=== PATIENT | male | born 1950 | race Caucasian/White ===

== ENCOUNTER 2023-11-25 06:49 | Inpatient (IN) | payer MEDICARE, OTHER ==
[~2023-11-25] VITALS: Ht 162.6 cm; Wt 81.6 kg
[2023-11-25 07:30] VITALS: BP 148/87; TEMP 97.9; O2SAT 95
[2023-11-25] MEDS ORDERED: dexaMETHasone SOD PHOSPHATE 2 ML ONE (08:04)
[2023-11-25] MEDS ORDERED: LIDOCAINE 2%-EPI 1:100,000 30 ML VIAL ONE (08:04)
[2023-11-25] MEDS ORDERED: VANCOMYCIN 1 GM VIAL ONE (08:04)
[2023-11-25] MEDS ORDERED: SEVOFLURANE 250 ML BOTTLE IH ONE (09:02)
[2023-11-25] MEDS ORDERED: FENTANYL PF 100MCG/2ML AMPUL ONE (11:54)
[2023-11-25] MEDS ORDERED: ACETAMINOPHEN 325 MG TABLET PO PRN (13:00)
[2023-11-25] MEDS ORDERED: ONDANSETRON HCL/PF 4 MG/2 ML VIAL IVP PRN (13:00)
[2023-11-25] MEDS: IV NS 0.9% 1,000 ML IV PRN (13:05)
[2023-11-25] MEDS ORDERED: PANT40TA2 PO (13:14)
[2023-11-25] MEDS ORDERED: ESCI20TA PO (13:14)
[2023-11-25] MEDS ORDERED: LISI10TA30 PO (13:14)
[2023-11-25] MEDS ORDERED: CHOL500052 PO (13:14)
[2023-11-25] MEDS ORDERED: MELA5TAB PO (13:14)
[2023-11-25] MEDS ORDERED: FINA5TAB4 PO (13:14)
[2023-11-25] MEDS ORDERED: DONE5TAB34 PO (13:14)
[2023-11-25] MEDS ORDERED: ALLO100T PO (13:14)
[2023-11-25] MEDS ORDERED: TAMS-12 PO (13:14)
[2023-11-25] MEDS ORDERED: AMLO5TAB4 PO (13:14)
[2023-11-25 16:00] VITALS: BP 139/90; TEMP 98.6; O2SAT 95
[2023-11-25] MEDS: HYDROMORPHONE 1 MG/1 ML DISP.SYRIN IV PRN (17:08)
[2023-11-25] MEDS: AMLODIPINE BESYLATE 5 MG TABLET PO SCH (17:08)
[2023-11-25] MEDS: FINASTERIDE (5 MG) 5 MG TABLET PO SCH (17:08)
[2023-11-25 20:00] VITALS: BP 148/59; TEMP 97.3; O2SAT 97
[2023-11-25] MEDS: VANCOMYCIN 1 GM in IV D5W 250ml IV SCH (21:13)
[2023-11-25] MEDS ORDERED: Medication Not On Formulary EA (Melatonin 10 MG) PO SCH (22:00)
[2023-11-26 08:29] VITALS: BP 144/79; TEMP 99; O2SAT 95
[2023-11-26 09:38] VITALS: BP 144/79
[2023-11-26] MEDS: LISINOPRIL (10MG) 10 MG TABLET PO SCH (09:38)
[2023-11-26] MEDS: ALLOPURINOL 100 MG TABLET PO SCH (09:38)
[2023-11-26] MEDS: TAMSULOSIN 0.4 MG CAP.SR.24H PO SCH (09:39)
[2023-11-26] MEDS: ESCITALOPRAM OXALATE (10 MG) 10 MG TABLET PO SCH (09:39)
[2023-11-26] MEDS: DONEPEZIL 5 MG TABLET PO SCH (09:39)
[2023-11-26] MEDS: PANTOPRAZOLE 40 MG TABLET.DR PO SCH (09:39)
[2023-11-26] MEDS ORDERED: TRAM50TA2 PO (11:14)
[2023-11-26] MEDS ORDERED: ACET325T53 PO (11:14)
[2023-11-26] MEDS ORDERED: AMOX-430 PO (11:14)
[2023-11-29] MEDS ORDERED: ERGOCALCIFEROL (VITAMIN D 2) 50,000 UNIT CAPSULE PO SCH (09:00)
== END 2023-11-26 12:00 | disposition home or self-care (01) | DRG 516 ==
LOC: DS 06:49 → MED 06:50
PROVIDERS: ADMIT Nurse Practitioner Acute Care; ATTEND Nurse Practitioner Acute Care
PROC: 0NSV04Z Reposition Left Mandible with Internal Fixation Device, Open Approach (ICD-10-PCS; principal; 2023-11-25)
PROC: 0NST04Z Reposition Right Mandible with Internal Fixation Device, Open Approach (ICD-10-PCS; 2023-11-25)
PROC: 0NUV07Z Supplement Left Mandible with Autologous Tissue Substitute, Open Approach (ICD-10-PCS; 2023-11-25)
PROC: 0NUR07Z Supplement Maxilla with Autologous Tissue Substitute, Open Approach (ICD-10-PCS; 2023-11-25)
PROC: 0NUT07Z Supplement Right Mandible with Autologous Tissue Substitute, Open Approach (ICD-10-PCS; 2023-11-25)
PROC: 0NSR04Z Reposition Maxilla with Internal Fixation Device, Open Approach (ICD-10-PCS; 2023-11-25)
PROC: 0NBV0ZX Excision of Left Mandible, Open Approach, Diagnostic (ICD-10-PCS; 2023-11-25)
PROC: 0NBR0ZX Excision of Maxilla, Open Approach, Diagnostic (ICD-10-PCS; 2023-11-25)
PROC: 0NBT0ZX Excision of Right Mandible, Open Approach, Diagnostic (ICD-10-PCS; 2023-11-25)
DX: M84.48XK Pathological fracture, other site, subsequent encounter for fracture with nonunion (principal); T81.83XA Persistent postprocedural fistula, initial encounter; M27.2 Inflammatory conditions of jaws; Z68.30 Body mass index [BMI] 30.0-30.9, adult; E66.9 Obesity, unspecified; I10 Essential (primary) hypertension; K21.9 Gastro-esophageal reflux disease without esophagitis; M19.90 Unspecified osteoarthritis, unspecified site; N40.0 Benign prostatic hyperplasia without lower urinary tract symptoms; Z71.3 Dietary counseling and surveillance; M85.60 Other cyst of bone, unspecified site; D16.5 Benign neoplasm of lower jaw bone; Y72.8 Miscellaneous otorhinolaryngological devices associated with adverse incidents, not elsewhere classified
CPT/HCPCS: C1713; G0378; J0690; J1100; J1170; J2704; J3010; J3370; J3490; J7060

== ENCOUNTER 2024-03-17 08:20 | Inpatient (IN) | payer MEDICARE, OTHER ==
[~2024-03-17] VITALS: Ht 167.6 cm; Wt 89.8 kg
[2024-03-17] VITALS (7 sets, daily range): BP systolic 117–128; BP diastolic 76–91; TEMP 97.9–98.2; O2SAT 94–97
[~2024-03-17 08:20] MED LIST: ACET325T53 PO; ALLO100T PO; AMLO5TAB4 PO; AMOX-430 PO; CHOL500052 PO; DONE5TAB34 PO; ESCI20TA PO; FINA5TAB4 PO; LISI10TA30 PO; MELA5TAB PO; PANT40TA2 PO; TAMS-12 PO; TRAM50TA2 PO
[2024-03-17] MEDS ORDERED: MIDAZOLAM HCL 2 MG/2ML VIAL ONE (10:04)
[2024-03-17] MEDS ORDERED: LIDOCAINE 2% JEL UROJET 10 ML MM ONE (10:05)
[2024-03-17] MEDS ORDERED: ROCURONIUM BROMIDE 50 MG/5 ML ONE (10:05)
[2024-03-17] MEDS ORDERED: FAMOTIDINE/PF INJ 20 MG/2 ML VIAL IV ONE (10:05)
[2024-03-17] MEDS ORDERED: FENTANYL PF 100MCG/2ML AMPUL ONE (10:05)
[2024-03-17] MEDS ORDERED: OXYMETAZOLINE HCL NASAL SPRAY 30 ML BOTTLE NS ONE (10:06)
[2024-03-17] MEDS ORDERED: dexaMETHasone SOD PHOSPHATE 1 ML ONE (10:07)
[2024-03-17] MEDS ORDERED: LIDOCAINE 2%-EPI 1:100,000 30 ML VIAL ONE (10:07)
[2024-03-17] MEDS ORDERED: VANCOMYCIN 1 GM VIAL ONE (10:07)
[2024-03-17] MEDS ORDERED: ACETAMINOPHEN 325 MG TABLET PO PRN (13:00)
[2024-03-17] MEDS ORDERED: ONDANSETRON HCL/PF 4 MG/2 ML VIAL IV PRN (13:00)
[2024-03-17] MEDS: IV NS 0.9% 1,000 ML IV PRN (14:18)
[2024-03-17] MEDS: HYDROMORPHONE 1 MG/1 ML DISP.SYRIN IV PRN (14:19)
[2024-03-17] MEDS ORDERED: MENTHOL/CETYLPYRD (CEPACOL) 1 LOZ LOZENGE PO PRN (14:30)
[2024-03-17] MEDS ORDERED: MAGNESIUM HYDROXIDE 30 ML UDC PO PRN (14:30)
[2024-03-17] MEDS: FINASTERIDE (5 MG) 5 MG TABLET PO SCH (18:28)
[2024-03-18 06:56] LABS: BASOPHILS % (AUTO) 0.1 % (0.0-2.0); HEMATOCRIT 43 % (39-51); HEMOGLOBIN 15.1 g/dL (13.5-17.5); LYMPHOCYTES # (AUTO) 0.8 K/uL (0.8-4.8); LYMPHOCYTES % (AUTO) 8.4 % (20.0-44.0); MEAN CORPUSCULAR HEMOGLOBIN 34 PG (26.0-33.0); MEAN CORPUSCULAR HGB CONC 35 g/dl (31.0-36.0); MEAN CORPUSCULAR VOLUME 98 fL (80-96); MONOCYTES # (AUTO) 0.3 K/uL (0.1-1.30); MONOCYTES % (AUTO) 3.3 % (2.0-12.0); NEUTROPHILS # (AUTO) 8.2 K/uL (1.8-8.9); NEUTROPHILS % (AUTO) 88.2 % (43.0-81.0); PLATELET COUNT (AUTO) 151 K/uL (150-450); RED BLOOD CELL COUNT(AUTO) 4.45 MIL/uL (4.5-6.0); RED CELL DISTRIBUTION WIDTH 13.1 % (11.5-15.0); WHITE BLOOD COUNT (AUTO) 9.3 K/uL (4.3-11.0)
[2024-03-18 07:16] LABS: CALCIUM, SERUM 8.8 mg/dL (8.5-10.1); CREATININE 1.1 mg/dL (0.6-1.3); MAGNESIUM 2.1 mg/dL (1.8-2.4); PHOSPHORUS 2.6 mg/dL (2.5-4.9); POTASSIUM 4.2 mmol/L (3.5-5.1)
[2024-03-18 08:00] VITALS: BP 120/72; TEMP 98.1; O2SAT 95
[2024-03-18] MEDS: ALLOPURINOL 100 MG TABLET PO SCH (08:32)
[2024-03-18 08:33] VITALS: BP 120/72
[2024-03-18] MEDS: TAMSULOSIN 0.4 MG CAP.SR.24H PO SCH (08:33)
[2024-03-18] MEDS: DONEPEZIL 5 MG TABLET PO SCH (08:33)
[2024-03-18] MEDS: LISINOPRIL (10MG) 10 MG TABLET PO SCH (08:33)
[2024-03-18] MEDS: ESCITALOPRAM OXALATE (10 MG) 10 MG TABLET PO SCH (08:33)
[2024-03-18] MEDS: PANTOPRAZOLE 40 MG TABLET.DR PO SCH (08:33)
== END 2024-03-18 11:45 | disposition home or self-care (01) | DRG 496 ==
LOC: DS 08:20 → MED 14:00
PROVIDERS: ADMIT Nurse Practitioner Family; ATTEND Nurse Practitioner Family
PROC: 0NPW04Z Removal of Internal Fixation Device from Facial Bone, Open Approach (ICD-10-PCS; principal; 2024-03-17)
PROC: 0NQT0ZZ Repair Right Mandible, Open Approach (ICD-10-PCS; 2024-03-17)
PROC: 0NBR0ZX Excision of Maxilla, Open Approach, Diagnostic (ICD-10-PCS; 2024-03-17)
PROC: 0NBT0ZZ Excision of Right Mandible, Open Approach (ICD-10-PCS; 2024-03-17)
DX: T84.69XA Infection and inflammatory reaction due to internal fixation device of other site, initial encounter (principal); S02.69XK Fracture of mandible of other specified site, subsequent encounter for fracture with nonunion; T81.83XA Persistent postprocedural fistula, initial encounter; I10 Essential (primary) hypertension; K21.9 Gastro-esophageal reflux disease without esophagitis; Z87.442 Personal history of urinary calculi; N40.0 Benign prostatic hyperplasia without lower urinary tract symptoms; M19.90 Unspecified osteoarthritis, unspecified site; M27.2 Inflammatory conditions of jaws; Y83.8 Other surgical procedures as the cause of abnormal reaction of the patient, or of later complication, without mention of misadventure at the time of the procedure; Y92.009 Unspecified place in unspecified non-institutional (private) residence as the place of occurrence of the external cause; X58.XXXD Exposure to other specified factors, subsequent encounter
CPT/HCPCS: 36415; 80048-TC; 83735-TC; 84100-TC; 85025-TC; 88300-TC; 88305-TC; 88311-TC; A4223; G0378; J1100; J1170; J2250; J2405; J2704; J2765; J3010; J3370; J3490; J7030